=== PATIENT | male | born 1955 | race Caucasian/White ===

== ENCOUNTER 2018-09-30 07:30 | Outpatient (CLI) | payer OTHER ==
[2018-09-30] MEDS ORDERED: Iopamidol 370 76% 100 ML VIAL ONE (07:54)
--- NOTE | 2018-09-30 08:35 | CT ---
CT Abdomen W WO Con History: Reason For Study Comparison: None. Findings: Small layering left pleural effusion. No pericardial fluid. Spleen is enlarged. Hepatic contour is nodular. No abnormal arterial enhancing mass. Small left gastric and sumi hepatis lymph nodes. No dilated loops of large or small bowel. Aortic contour is nonaneurysmal. No acute osseous abnormality. 2 separate cysts right kidney. No hydr onephrosis. The aortic contour is nonaneurysmal. Nonunion left posterior 11th rib fracture. Impression: 1. Hepatic cirrhosis without abnormal arterial enhancing mass. 2. Likely reactive small sumi hepatis, left gastric and retroperitoneal periaortic adenopathy. 3. Mild splenomegaly suggesting portal hypertension. 4. No acute inflammatory process within the abdomen. 5. Small left layering pleural effusion.
== END 2018-09-30 07:31 | disposition home or self-care (01) ==
LOC: CT 07:30
PROVIDERS: ATTEND Physician Assistant Medical
DX: B18.2 Chronic viral hepatitis C (principal); R94.5 Abnormal results of liver function studies; D69.6 Thrombocytopenia, unspecified; K80.20 Calculus of gallbladder without cholecystitis without obstruction; R16.1 Splenomegaly, not elsewhere classified; K74.60 Unspecified cirrhosis of liver; J90 Pleural effusion, not elsewhere classified
CPT/HCPCS: 74170; 82565; Q9967